=== PATIENT | female | born 1975 | race Caucasian/White ===

== ENCOUNTER 2022-10-17 18:10 | Inpatient (IN) | payer OTHER ==
[~2022-10-17] VITALS: Ht 165.1 cm; Wt 108.4 kg
[2022-10-17 18:17] VITALS: BP_SYST 168
--- NOTE | 2022-10-17 18:35 | NUR ---
PT BIB SELF AWAKE AND ALERT AOX4, COMING FROM HOME, NO SOB OR DISTRESS. PT C/O EPIGASTRIC PAIN SINCE LAST NIGHT. PT STATES PAIN 10/10. PT DENIES TRAUMA. PT STATES FEELING NUASEA. PT DENIES VOMITING AND DIAHREA. PT DENIES HX. ONLY SX WAS .
--- NOTE | 2022-10-17 18:37 | NUR ---
MD DR WOO AT BEDSIDE
--- NOTE | 2022-10-17 18:40 | NUR ---
PT WAS OFFERED PAIN MEDS FROM DR WOO, BUT REFUSED AT THIS TIME AND WANTS TO WAIT FOR LAB AND TEST BACK FIRST.
[2022-10-17 18:59] LABS: BASOPHILS # (AUTO) 0.1 K/uL (0.0-0.2); BASOPHILS % (AUTO) 0.7 % (0.0-2.0); EOSINOPHILS # (AUTO) 0.1 K/uL (0.0-0.4); EOSINOPHILS % (AUTO) 0.7 % (0.0-4.0); HEMATOCRIT 32.1 % (36-48); HEMOGLOBIN 10.3 g/dL (12.0-16.0); LYMPHOCYTES # (AUTO) 1.7 K/uL (1.0-5.5); LYMPHOCYTES % (AUTO) 13.6 % (20.5-51.5); MEAN CORPUSCULAR HEMOGLOBIN 22 pg (27-31); MEAN CORPUSCULAR HGB CONC 32 % (32-36); MEAN CORPUSCULAR VOLUME 69 fL (79.0-98.0); MONOCYTES # (AUTO) 0.8 K/uL (0.0-1.0); MONOCYTES % (AUTO) 6.2 % (1.7-9.3); NEUTROPHILS # (AUTO) 9.7 K/uL (1.8-7.7); NEUTROPHILS % (AUTO) 78.8 % (40.0-70.0); PLATELET COUNT (AUTO) 322 K/uL (130-430); RED BLOOD CELL COUNT(AUTO) 4.68 MIL/uL (4.2-6.2); WHITE BLOOD COUNT (AUTO) 12.3 K/uL (4.8-10.8)
[2022-10-17] MEDS ORDERED: KETOROLAC TROMETHAMINE 60 MG/2 ML VIAL IM ONE ×2 (19:00)
--- NOTE | 2022-10-17 19:27 | NUR ---
REPORT GIVEN TO ALO YE
[2022-10-17 19:32] LABS: BILIRUBIN,URINE NEGATIVE (NEGATIVE); BLOOD, URINE NEGATIVE (NEGATIVE); CLARITY/URINE CLEAR (CLEAR); COLOR,URINE YELLOW (YELLOW); GLUCOSE,URINE NEGATIVE (NEGATIVE); KETONES,URINE 2+ (NEGATIVE); LEUKOCYTE ESTERASE ,URINE NEGATIVE (NEGATIVE); NITRITE, URINE NEGATIVE (NEGATIVE); PROTEIN URINE NEGATIVE (NEGATIVE); UROBILINOGEN,URINE 0.2 (0.2-1.0)
[2022-10-17 19:32] LABS: ALANINE AMINOTRANSFERASE 20 U/L (12-78); ALBUMIN 3.9 g/dL (3.4-4.8); AMYLASE 44 U/L (0-100); ANION GAP 18 (5-15); ASPARTATE AMINOTRANSFERASE 15 U/L (10-37); CALCIUM 8.7 mg/dL (8.4-11.0); CHLORIDE 99 mmol/L (98-107); CREATININE 0.78 mg/dL (0.55-1.30); GFR AFRICAN AMERICAN 102 mL/min (>90); GLUCOSE 121 mg/dL (70-99); LACTATE DEHYDROGENASE 180 U/L (81-234); LIPASE 92 U/L (73-393); TOTAL BILIRUBIN 0.4 mg/dL (0.0-1.0); UREA NITROGEN, BLOOD 7 mg/dL (8-21)
[2022-10-17] MEDS ORDERED: MORPHINE 4 MG INJ. 4 MG/ML VIAL IM ONE (19:45)
[2022-10-17 19:47] LABS: C-REACTIVE PROTEIN QUANT < 0.2 mg/dL (0-0.5)
[2022-10-17] MEDS ORDERED: POTASSIUM CHLORIDE 20 MEQ/PKT PACKET PO ONE (20:00)
[2022-10-17] MEDS ORDERED: NACL 0.9% 1,000 ML IV ONE (20:15)
[2022-10-17] MEDS ORDERED: PIPERACILLIN/TAZO 4.5GM/DEX-IS 100 ML IV SCH (20:15)
--- NOTE | 2022-10-17 20:18 | NUR ---
Admit bed requested Patient will be admitted to care of . [facility]. Diagnosis POSSIBLE CHOLECYSTITIS Inpatient (Yes or No) Y Observation (Yes or No) N Orientation concerns or request close to nursing station (Yes or No) N Covid Status PENDING On vent or bipap N Isolation requirements N Needs a sitter N From Home (Yes or if No enter name of facility) Y Requires Dialysis (Yes or No) N Med Rec Completed (Yes of No) Y
[2022-10-17] MEDS ORDERED: PIPERACILLIN/TAZOBACTAM 4.5 GM/VIAL (ZOSYN) IV ONE (20:22)
--- NOTE | 2022-10-17 20:30 | NUR ---
KAYE COLLECTED, LABELED AND TAKEN TO LAB
[2022-10-17] MEDS ORDERED: VANCOMYCIN HCL 1.25 GM/NS 250 ML IV ONE (21:00)
[2022-10-17] MEDS ORDERED: PIPERACILLIN/TAZO 4.5GM/DEX-IS 100 ML IV ONE (21:00)
--- NOTE | 2022-10-17 21:35 | NUR ---
PT IS AA&OX4. AFEBRILE. NAD. DENIES PAIN. AMBULATORY. CONTINENT OF B & B. SAFE & HAZARD FREE ENVIRONMENT PROVIDED.
--- NOTE | 2022-10-17 21:35 | NUR ---
ER at bedside examining patient.
[2022-10-17] MEDS ORDERED: KCL 20 mEq in 0.45% NS 1000 mL 1,000 ML IV ONE (21:44)
--- NOTE | 2022-10-17 21:50 | NUR ---
Patient will be admitted to care of Dr. Garza. Admitted to M/S unit. Will go to room 118B. Belongings list completed. Complete and up to date summary report printed. SBAR report to be given at bedside to FABIAN Ann with opportunity for questions.
--- NOTE | 2022-10-17 22:00 | NUR ---
pt admitted to [facility]. pt aox4 able to make needs known. pt on ra. pt ambulatory. iv in rac 18g. pt educated to use call light if she needs assistance. pt verbalized understanding.
[2022-10-17 22:15] VITALS: BP_SYST 144
[2022-10-17] MEDS: PANTOPRAZOLE SODIUM 40 MG/VIAL (PROTONIX) IVP SCH (22:57)
--- NOTE | 2022-10-17 23:23 | NUR ---
CONSULTATION PAGED/CALLED Reason for Consultation: POSSIBLE ACUTE CHOLECYSITITS Person Who was Notified: GLENN Consulting Physician: DR. [facility] LIBRARIAN Court Commissioner Specialty: GI Ordering Physician: DR. VASQUES
[2022-10-17] MEDS: KCL 20 mEq in 0.45% NS 1000 mL 1,000 ML IV SCH (23:24)
[2022-10-18] MEDS ORDERED: CEFEPIME 1 GM/VIAL (MAXIPIME) ONE (00:36)
[2022-10-18] MEDS: CEFEPIME 1 GM in D5W 50 ML IV SCH ×3 (00:40→21:18)
[2022-10-18 00:52] VITALS: BP_SYST 144
[2022-10-18] MEDS: HYDROmorphone 2 MG/ML VIAL IVP PRN ×4 (00:54→21:20)
[2022-10-18 05:57] LABS: BASOPHILS # (AUTO) 0.1 K/uL (0.0-0.2); BASOPHILS % (AUTO) 0.6 % (0.0-2.0); EOSINOPHILS # (AUTO) 0.1 K/uL (0.0-0.4); EOSINOPHILS % (AUTO) 1.3 % (0.0-4.0); HEMATOCRIT 31.5 % (36-48); HEMOGLOBIN 9.9 g/dL (12.0-16.0); LYMPHOCYTES # (AUTO) 2.3 K/uL (1.0-5.5); LYMPHOCYTES % (AUTO) 22.5 % (20.5-51.5); MEAN CORPUSCULAR HEMOGLOBIN 22 pg (27-31); MEAN CORPUSCULAR HGB CONC 31 % (32-36); MEAN CORPUSCULAR VOLUME 70 fL (79.0-98.0); MONOCYTES # (AUTO) 0.9 K/uL (0.0-1.0); MONOCYTES % (AUTO) 8.9 % (1.7-9.3); NEUTROPHILS # (AUTO) 6.7 K/uL (1.8-7.7); NEUTROPHILS % (AUTO) 66.7 % (40.0-70.0); PLATELET COUNT (AUTO) 304 K/uL (130-430); RED BLOOD CELL COUNT(AUTO) 4.51 MIL/uL (4.2-6.2); RED CELL DISTRIBUTION WIDTH 18.2 % (9.0-15.0); WHITE BLOOD COUNT (AUTO) 10.1 K/uL (4.8-10.8)
[2022-10-18 06:10] LABS: CALCIUM 8.2 mg/dL (8.4-11.0); CREATININE 0.66 mg/dL (0.55-1.30)
--- NOTE | 2022-10-18 06:52 | NUR ---
pt Co abd pain x1 during shift. pt medicated for pain once. pt slept the rest of the night.
[2022-10-18 08:00] VITALS: BP_SYST 146
[2022-10-18] MEDS: PANTOPRAZOLE SODIUM 40 MG/VIAL (PROTONIX) IVP SCH ×2 (08:44→21:18)
[2022-10-18 09:48] LABS: TOTAL IRON BIND. CAPACITY 383 ug/dL (250-450)
[2022-10-18] MEDS: ONDANSETRON HCL 4 MG/2 ML VIAL IVP PRN ×2 (09:59→13:50)
[2022-10-18 11:15] VITALS: BP_SYST 139
--- NOTE | 2022-10-18 11:28 | NUR ---
Shift Summary: patient is AAXO4. vitals are stable. patient updated on plan of care for shift. bedside ultrasound done. patient informed of HIDA scan order. spoke to special procedures technologist regarding scheduling. special procedures technologistAriel, informed patient will be scheduled for tomorrow morning and patient will need to be NPO at midnight. updated patient on MRI orders. patient currently resting. will continue to monitor. patient educated on use of call light due to patient being high risk for fall. patient and family state they understand. call light within reach, bed set to low and locked.
[2022-10-18] MEDS: KCL 20 mEq in 0.45% NS 1000 mL 1,000 ML IV SCH (13:59)
[2022-10-18 16:00] VITALS: BP_SYST 128
[2022-10-18] MEDS: ACETAMINOPHEN 325 MG TABLET PO PRN (17:20)
[2022-10-18 19:45] VITALS: BP_SYST 114
[2022-10-18] MEDS ORDERED: ENOXAPARIN SODIUM 40 MG/0.4 ML SYRINGE SUBCUT SCH (21:00)
[2022-10-19 00:26] VITALS: BP_SYST 114
[2022-10-19] MEDS: KCL 20 mEq in 0.45% NS 1000 mL 1,000 ML IV SCH ×2 (01:53→18:23)
[2022-10-19] MEDS: HYDROmorphone 2 MG/ML VIAL IVP PRN (05:27)
--- NOTE | 2022-10-19 06:17 | NUR ---
PT AOX4, EVEN AND UNLABORED BREATHING, DENIED ANY SOB, PAIN, PT NPO FROM MN, AMBULATORY TO RESTROOM, VOIDING WELL, IVF 1/2 NS + 20MEQ AT 75CC TO RFA W/O INFILTRATION, ABD PAIN CONTROLLED WITH DILAUDID, WILL ENDORSE TO AM SHIFT.
[2022-10-19 07:45] VITALS: BP_SYST 131
[2022-10-19] MEDS: CEFEPIME 1 GM in D5W 50 ML IV SCH (08:42)
[2022-10-19] MEDS: PANTOPRAZOLE SODIUM 40 MG/VIAL (PROTONIX) IVP SCH (08:43)
--- NOTE | 2022-10-19 08:47 | NUR ---
IV PLACEMENT: # 22 gauge angiocath placed to left forearm . Use of asceptic technique. Opsite placed over site. Blood return noted. . Flushed with 10 cc of normal saline. No evidence of infiltration noted. Patient tolerated well.
[2022-10-19 09:06] LABS: FOLATE (FOLIC ACID) 13.7 ng/mL (>3.0)
[2022-10-19] MEDS: ACETAMINOPHEN 325 MG TABLET PO PRN (14:47)
--- NOTE | 2022-10-19 14:52 | NUR ---
CONSULTATION PAGED/CALLED Reason for Consultation: CHOLELITIASIS Person Who was Notified: CHRISTOPHER Consulting Physician: ANTHONY WEBBER Ordering Physician: MARY VASQUES
--- NOTE | 2022-10-19 15:15 | NUR ---
dr felix called back for sx consult, ordered to keep pt npo.
[2022-10-19 16:24] VITALS: BP_SYST 115
--- NOTE | 2022-10-19 17:09 | NUR ---
paged dr felix for pt, pt stated she wanted to go ahead with surgery.
--- NOTE | 2022-10-19 18:29 | NUR ---
INFORMED EDUCATED PT ABT CHG BATH. REQUESTED YOVANI CARRASCO TO ASSIST PT WITH CHG BATH.
[2022-10-19 18:54] LABS: PROTHROMBIN TIME 10.6 SECS (9.5-12.5)
--- NOTE | 2022-10-19 19:37 | NUR ---
pre op checklist completed. pt endorsed to night mary [facility] [place].
[2022-10-19 19:53] VITALS: BP_SYST 160
--- NOTE | 2022-10-19 19:55 | NUR ---
received pt in bed, male and female OR persons at bedside to leave with pt for the surgery, v/s checked and BP noted to be 160/84, HR 83, O2sat 99. OR person aware of BP, said is ok, they will recheck in OR. Pt denied any sob, cp, palpitation or pain att, ambulatory and voiding well, iv access to LFA, pt left [facility] in [facility] in the company of male and female OR persons
[2022-10-19] MEDS ORDERED: iohexoL 240 mgI/mL, 50 ML INFUS..BTL IV ONE (19:56)
[2022-10-19] MEDS ORDERED: HYDROmorphone 1 MG/ML INJ. CARTRIDGE IVP PRN ×2 (22:15)
[2022-10-19] MEDS ORDERED: MIDAZOLAM HCL 5 MG/5 ML VIAL IVP PRN (22:15)
[2022-10-19] MEDS ORDERED: ONDANSETRON HCL 4 MG/2 ML VIAL IVP PRN (22:15)
[2022-10-19] MEDS ORDERED: NALOXONE HCL 0.4 MG/ML AMP (NARCAN) IVP PRN ×2 (22:15)
[2022-10-19] MEDS ORDERED: KETOROLAC TROMETHAMINE 30 MG VIAL IVP PRN (22:15)
[2022-10-19] MEDS ORDERED: PROPOFOL 200MG/ 20ML VIAL (DIPRIVAN) IV ONE (22:23)
[2022-10-19] MEDS ORDERED: METOCLOPRAMIDE HCL 10 MG/2 ML VIAL ONE (22:23)
[2022-10-19] MEDS ORDERED: SEVOFLURANE 15 MIN GAS INH ONE (22:23)
[2022-10-19] MEDS ORDERED: BUPIVACAINE /PF 0.5% 30 ML VIAL ONE (22:23)
[2022-10-19] MEDS ORDERED: DEXAMETHASONE SOD PHOSPHATE 4 MG/ML VIAL ONE (22:23)
[2022-10-19] MEDS ORDERED: WATER FOR IRRIGATION,STERILE 1,000 ML IRRIG.SOLN IR ONE (22:23)
[2022-10-19] MEDS ORDERED: LR 1,000 ML IV.SOLN IV ONE (22:23)
[2022-10-19] MEDS ORDERED: NS 1000 ML IV.SOLN IV ONE (22:23)
[2022-10-19] MEDS ORDERED: MIDAZOLAM HCL 5 MG/5 ML VIAL ONE (22:23)
[2022-10-19] MEDS ORDERED: GLYCOPYRROLATE 0.2 MG/ML VIAL ONE (22:23)
[2022-10-19] MEDS ORDERED: NEOSTIGMINE METHYLSULFATE 1 MG/ML, 10 ML VIAL ONE (22:23)
[2022-10-19] MEDS ORDERED: ePHEDrine sulfate 50 MG/ML VIAL ONE (22:23)
[2022-10-19] MEDS ORDERED: ONDANSETRON HCL 4 MG/2 ML VIAL ONE (22:23)
[2022-10-19] MEDS ORDERED: HYDROmorphone 2 MG/ML VIAL ONE (22:23)
[2022-10-19] MEDS ORDERED: ROCURONIUM BROMIDE 10 MG/ML (ZEMURON) ONE (22:23)
[2022-10-19] MEDS ORDERED: HYDROmorphone 1 MG/ML INJ. CARTRIDGE ONE (22:46)
[2022-10-20] VITALS (7 sets, daily range): BP systolic 107–159
--- NOTE | 2022-10-20 | NUR ---
RECEIVED PT FROM PACU ATT VIA [place], AOX4, EVEN AND UNLABORED BREATHING, ON 2L O2 VIA N/C, DENIED SOB, CP OR PAIN ATT, ABD INCISIONS X4 CDI, NO ACTIVE BLEEDING NOTED, R ABD ESTEPHANIE DRAIN INTACT AND DRAINING MINIMAL AMOUNT OF SEROSANGUINEOUS FLUID, LH IV ACCESS INTACT AND FLUSHING WELL, RESUMED ON 1/2NS + 20MEQ AT 75CC PER ORDERED, PT TOLERATED CLEARS LIQUID DIET, WILL CONTINUE WITH POC
[2022-10-20] MEDS: PANTOPRAZOLE SODIUM 40 MG/VIAL (PROTONIX) IVP SCH ×3 (00:16→20:44)
[2022-10-20] MEDS: CEFEPIME 1 GM in D5W 50 ML IV SCH ×3 (00:16→20:45)
[2022-10-20] MEDS: KCL 20 mEq in 0.45% NS 1000 mL 1,000 ML IV SCH ×2 (05:42→16:15)
--- NOTE | 2022-10-20 06:21 | NUR ---
PT IN BED, AOX4, EVEN AND UNLABORED BREATHING, ON 2L O2 VIA N/C, DENIED SOB, CP OR PAIN ATT, ABD INCISIONS X4 CDI, NO ACTIVE BLEEDING NOTED, R ABD ESTEPHANIE DRAIN INTACT AND DRAINING MINIMAL AMOUNT OF SEROSANGUINEOUS FLUID, IVF 1/2NS + 20MEQ AT 75CC ONGOING, PT TOLERATING CLEARS LIQUID DIET, WILL ENDORSE TO AM SHIFT
[2022-10-20] MEDS: traMADol HCL HCL 50 MG TABLET (ULTRAM) PO PRN ×2 (06:56→16:13)
[2022-10-20 07:36] LABS: BASOPHILS % (AUTO) 0.1 % (0.0-2.0); HEMATOCRIT 29.6 % (36-48); HEMOGLOBIN 9.3 g/dL (12.0-16.0); LYMPHOCYTES # (AUTO) 1.1 K/uL (1.0-5.5); LYMPHOCYTES % (AUTO) 9.3 % (20.5-51.5); MEAN CORPUSCULAR HEMOGLOBIN 22 pg (27-31); MEAN CORPUSCULAR HGB CONC 31 % (32-36); MEAN CORPUSCULAR VOLUME 70 fL (79.0-98.0); MONOCYTES # (AUTO) 0.9 K/uL (0.0-1.0); NEUTROPHILS # (AUTO) 9.6 K/uL (1.8-7.7); PLATELET COUNT (AUTO) 283 K/uL (130-430); RED BLOOD CELL COUNT(AUTO) 4.24 MIL/uL (4.2-6.2); WHITE BLOOD COUNT (AUTO) 11.6 K/uL (4.8-10.8)
[2022-10-20 07:54] LABS: ALBUMIN 3.1 g/dL (3.4-4.8); CALCIUM 8.4 mg/dL (8.4-11.0); CREATININE 0.54 mg/dL (0.55-1.30); TOTAL BILIRUBIN 0.4 mg/dL (0.0-1.0)
[2022-10-20 08:19] LABS: NEUTROPHILS % (AUTO) 82.6 % (40.0-70.0)
[2022-10-20] MEDS: ONDANSETRON HCL 4 MG/2 ML VIAL IVP PRN ×3 (08:21→18:21)
[2022-10-20] MEDS: HYDROmorphone 2 MG/ML VIAL IVP PRN ×3 (08:29→18:22)
--- NOTE | 2022-10-20 19:55 | NUR ---
PT IN BED, AOX4, EVEN AND UNLABORED BREATHING, ON ROOM AIR, DENIED SOB, CP OR PAIN ATT, ABD INCISIONS, DRESSING ON ESTEPHANIE DRAIN SITE SOAKED WITH SEROUS FLUID, OTHER SITES CDI, NO ACTIVE BLEEDING NOTED, R ABD ESTEPHANIE DRAIN INTACT AND DRAINING MINIMAL AMOUNT OF SEROSANGUINEOUS FLUID, IVF 1/2NS + 20MEQ AT 75CC ONGOING, WILL CONTINUE WITH POC, 2200 DRESSING ON ESTEPHANIE DRAIN SITE CHANGED, PT TOLERATED WELL, NO ACTIVE BLEEDING NOTED
[2022-10-20] MEDS ORDERED: NALOXONE HCL 0.4 MG/ML AMP (NARCAN) IVP PRN (20:00)
[2022-10-20] MEDS ORDERED: HYDROcodone/ACETAMIN 5-325 MG TAB (NORCO/ VICODIN) PO PRN (20:00)
[2022-10-21 00:18] VITALS: BP_SYST 126
[2022-10-21] MEDS: HYDROmorphone 2 MG/ML VIAL IVP PRN (04:32)
[2022-10-21] MEDS: KCL 20 mEq in 0.45% NS 1000 mL 1,000 ML IV SCH (06:33)
--- NOTE | 2022-10-21 06:44 | NUR ---
PT IN BED, AOX4, EVEN AND UNLABORED BREATHING, ROOM AIR, DENIED SOB, CP OR PAIN ATT, ABD INCISIONS X4 CDI, NO ACTIVE BLEEDING NOTED, R ABD ESTEPHANIE DRAIN INTACT AND DRAINING MINIMAL AMOUNT OF SEROUS FLUID, IVF 1/2NS + 20MEQ AT 75CC ONGOING, PT TOLERATING CLEARS LIQUID DIET, AMBULATORY TO RESTROOM AND HALLWAY, INSTRUCTED PT TO CONTINUE USING INCENTIVE SPIROMETRY, WILL ENDORSE TO AM SHIFT
--- NOTE | 2022-10-21 07:40 | NUR ---
RN OPENING NOTE REPORT WAS ENDORSED BY NIGHT NURSE. PATIENT IS AWAKE AND ALERT SITTING IN BED. PATIENT STATES SHE IS STILL WAKING UP. EDUCATED CRAYON GRADER LIGHT FOR ASSISTANCE. CALL LIGHT IS WITH HER. NO COMPLAINTS AT THIS TIME. NO OTHER NEEDS AT THIS TIME.
[2022-10-21 08:36] VITALS: BP_SYST 113
[2022-10-21] MEDS: PANTOPRAZOLE SODIUM 40 MG/VIAL (PROTONIX) IVP SCH (08:44)
[2022-10-21] MEDS: CEFEPIME 1 GM in D5W 50 ML IV SCH (08:44)
--- NOTE | 2022-10-21 08:57 | NUR ---
medication patients scheduled medication given per order. patient is awake and alert no complaints at this time. educated loan operations specialist light for assistance. call light is with her. Incisional dressings is clean dry and intact with no signs of active bleeding. ESTEPHANIE in compressed for draining. no other needs at this time.
[2022-10-21 11:35] VITALS: BP_SYST 126
--- NOTE | 2022-10-21 12:00 | NUR ---
Dr. Faisal BALDERAS removed patient ESTEPHANIE drain. states if she tolerates lunch can go home. patient educated no other needs at this time. educated director of corporate communications light for assistance. call light is with her.
--- NOTE | 2022-10-21 13:55 | NUR ---
Dr. joel lópez md for d/c orders. patient states she tolerated lunch well. patients dressing are clean dry intact. patient educated on IS able to inspire 2500. patient educated wafer fabrication technician light for assistance no other needs at this time.
--- NOTE | 2022-10-21 15:20 | NUR ---
spoke with Dr. Greg barry to discharge. ok for her to go home of over the counter Tylenol or ibuprofen for pain control. Surgeon will call in his own pain medication.
[2022-10-21] MEDS ORDERED: ACET325T PO (15:24)
[2022-10-21] MEDS ORDERED: IBUP100O21 PO (16:20)
[2022-10-21] MEDS ORDERED: ACET325T53 PO (16:21)
[2022-10-21] MEDS ORDERED: HYDR-3917 PO (16:21)
[2022-10-21 16:23] VITALS: BP_SYST 143
[2022-10-21 16:30] VITALS: BP_SYST 143
--- NOTE | 2022-10-21 16:50 | NUR ---
discharge patient is awake and alert no signs of any distress, breathing is equal and non labored. patient's dressing is clean dry and intact with no signs of discharge or active bleeding. patient educated to take IS and continue to use at home patient did demo IS at 2500. patient educated on discharge paper work. no further questions. phone number was provided with Dr. Malone. patient's iv catheter removed, catheter intact applied tape and gauze to insertion site. patient's ID removed. patient has all belongings wit her. family with her. wheel out to car no discharge no other needs at this time.
== END 2022-10-21 16:50 | disposition home or self-care (01) | DRG 419 ==
LOC: SED 18:10 → SMU 20:14
PROVIDERS: ADMIT Family Medicine; ATTEND Family Medicine
PROC: BF131ZZ Fluoroscopy of Gallbladder and Bile Ducts using Low Osmolar Contrast (ICD-10-PCS; 2022-10-19)
PROC: 0FT44ZZ Resection of Gallbladder, Percutaneous Endoscopic Approach (ICD-10-PCS; principal; 2022-10-19 20:00)
DX: K80.12 Calculus of gallbladder with acute and chronic cholecystitis without obstruction (principal); E87.6 Hypokalemia; E66.01 Morbid (severe) obesity due to excess calories; Z96.641 Presence of right artificial hip joint; Z20.822 Contact with and (suspected) exposure to COVID-19; K82.8 Other specified diseases of gallbladder; Z98.891 History of uterine scar from previous surgery; Z68.39 Body mass index [BMI] 39.0-39.9, adult
CPT/HCPCS: 36415; 71045; 74181; 76000; 76376; 76700-TC; 78226; 80048; 80053; 81003; 82150; 82607; 82728; 82746; 83540; 83550; 83605; 83615; 83690; 83735; 84484; 84703; 85025; 85610-TC; 85730-TC; 86140; 87040; 87081; 88304; 93005; 96365; 96372; 99291; A9537; C1727; C9113; J0692; J1100; J1170; J1650; J1885; J2250; J2270; J2405; J2543; J2704; J2710; J2765; J3370; J3480; J3490; J7030; J7060; J7120; Q9966